=== PATIENT | male | born 1990 | race American Indian/Alaskan Native ===

== ENCOUNTER 2017-04-16 02:36 | Emergency (ER) | payer SELFPAY ==
[2017-04-16 03:05] LABS: Urine Drugs of Abuse Note Disclamer
[2017-04-16 03:10] LABS: Basophils % (Auto) 1.3 % (0.0-1.8); Eosinophils % (Auto) 3.4 % (0.0-4.3); Hemoglobin 15.2 gm/dl (11.8-15.2); Mean Corpuscular HGB Conc 32 % (32-34); Mean Corpuscular Hemoglobin 31 pg (28-32); Mean Corpuscular Volume 94 fl (84-94); Platelet Count 277 K/mm3 (140-440); Red Blood Count 4.99 M/mm3 (3.65-5.03); Red Cell Distribution Width 14.7 % (13.2-15.2)
[2017-04-16 03:14] LABS: Bilirubin,Urine NEG (Negative); Blood,Urine MOD (Negative); Ketones,Urine NEG (Negative); Leukocyte Esterase,Urine NEG (Negative); Mucus,Urine FEW /HPF; Nitrite,Urine NEG (Negative); Protein,Urine <15 mg/dL mg/dL (Negative); Urobilinogen,Urine < 2.0 mg/dL (<2.0)
[2017-04-16 03:33] LABS: Alanine Aminotransferase 12 units/L (7-56); Albumin 5.3 g/dL (3.9-5); Albumin/Globulin Ratio 1.7 %; Alkaline Phosphatase 76 units/L (35-129); Anion Gap 23 mmol/L; Blood Urea Nitrogen 15 mg/dL (9-20); Calcium 10.1 mg/dL (8.4-10.2); Carbon Dioxide 26 mmol/L (22-30); Chloride 98.6 mmol/L (98-107); Glucose 70 mg/dL (75-100); Potassium 4.8 mmol/L (3.6-5.0); Sodium 143 mmol/L (137-145); Total Protein 8.4 g/dL (6.3-8.2)
[2017-04-16] MEDS ORDERED: NACL 0.9% 500 ML 500 ML IV ONE (07:39)
--- NOTE | 2017-04-16 10:16 | Emergency Department Report ---
HPI - General Chief Complaint: Overdose Time Seen by Provider: 04/16/17 06:22 - HPI HPI: The patient's 27-year-old male presents for evaluation of altered mental status. The patient's states that the patient experienced syncope last night and constant and severe altered mental status this morning, prompting call to EMS. Per EMS the patient was found to have drowsiness and decreased responsiveness on scene. The patient reports tiredness secondary to excessive alcohol consumption last night. The patient denies illicit substance use. The patient also denies fever, head injury, headache, neck pain, neck stiffness, chest pain, dyspnea, vision or hearing changes, smell or taste changes, paresthesias, facial drooping, seizure-like activity, urine or bowel incontinence or retention, or other focal neurological deficit. ED Past Medical Hx - Past Medical History Previous Medical History?: No - Surgical History Past Surgical History?: No - Social History Smoking Status: Never Smoker ED Review of Systems ROS: Stated complaint: OVERDOSE Other details as noted in HPI Constitutional: denies: fever; reports tiredness ENT: denies: throat or neck pain Respiratory: denies: cough, shortness of breath Cardiovascular: denies: chest pain Endocrine: denies unexplained weight loss or gain Gastrointestinal: denies: abdominal pain, nausea Genitourinary: denies: dysuria Musculoskeletal: denies: leg swelling Skin: denies: rash Neurological: denies: headache Hematological/Lymphatic: denies: easy bleeding or easy bruising Psych: denies sadness or hopelessness Physical Exam - Physical Exam Vital Signs: Vital Signs 04/16/17 04/16/17 04/16/17 02:43 03:54 04:00 Temperature 98.2 F Pulse Rate 92 H 71 82 Respiratory 16 9 L 12 Rate Blood Pressure 120/90 O2 Sat by Pulse 100 98 97 Oximetry 04/16/17 04/16/17 04/16/17 04:05 04:10 04:20 Temperature Pulse Rate 86 80 Respiratory 12 14 8 L Rate Blood Pressure O2 Sat by Pulse 99 97 Oximetry 04/16/17 04/16/17 04/16/17 04:30 04:40 04:50 Temperature Pulse Rate 66 65 59 L Respiratory 9 L 7 L 7 L Rate Blood Pressure O2 Sat by Pulse 99 98 98 Oximetry 04/16/17 04/16/17 04/16/17 05:00 05:10 05:20 Temperature Pulse Rate 73 72 74 Respiratory 8 L 7 L 7 L Rate Blood Pressure O2 Sat by Pulse 97 97 97 Oximetry 04/16/17 04/16/17 04/16/17 05:30 05:40 05:50 Temperature Pulse Rate 77 73 76 Respiratory 7 L 6 L 8 L Rate Blood Pressure O2 Sat by Pulse 96 98 97 Oximetry Physical Exam: General: well-nourished, well-developed, no acute distress Head: Normocephalic, atraumatic Eyes: normal sclera, EOMI, PERRLA ENT: Mucous membranes are pale and dry Neck: No neck stiffness, no cervical adenopathy Respiratory: Breath sounds equal bilaterally, no wheezing, rales, or rhonchi Cardio: S1 and S2 present, no murmurs, rubs, gallops, capillary refill is delayed Abdomen: Normoactive bowel sounds, soft abdomen, no rigidity, no guarding or rebound tenderness Chest WALL/Back: No tenderness to palpation of the chest wall, no CVA tenderness with percussion Musc: No pitting edema Skin: No rash Neuro: Alert oriented 3, no facial drooping, normal speech, no sensation motor deficit in the arms or legs, reflexes are symmetrical DTR testing, no current Deficit with finger to nose testing, no obvious neuro deficits present at this time Psych: Normal affect ED Course Vital Signs 04/16/17 04/16/17 04/16/17 02:43 03:54 04:00 Temperature 98.2 F Pulse Rate 92 H 71 82 Respiratory 16 9 L 12 Rate Blood Pressure 120/90 O2 Sat by Pulse 100 98 97 Oximetry 04/16/17 04/16/17 04/16/17 04:05 04:10 04:20 Temperature Pulse Rate 86 80 Respiratory 12 14 8 L Rate Blood Pressure O2 Sat by Pulse 99 97 Oximetry 04/16/17 04/16/17 04/16/17 04:30 04:40 04:50 Temperature Pulse Rate 66 65 59 L Respiratory 9 L 7 L 7 L Rate Blood Pressure O2 Sat by Pulse 99 98 98 Oximetry 04/16/17 04/16/17 04/16/17 05:00 05:10 05:20 Temperature Pulse Rate 73 72 74 Respiratory 8 L 7 L 7 L Rate Blood Pressure O2 Sat by Pulse 97 97 97 Oximetry 04/16/17 04/16/17 04/16/17 05:30 05:40 05:50 Temperature Pulse Rate 77 73 76 Respiratory 7 L 6 L 8 L Rate Blood Pressure O2 Sat by Pulse 96 98 97 Oximetry ED Medical Decision Making - Lab Data Result diagrams: 04/16/17 02:37 04/16/17 02:37 - Medical Decision Making The patient was seen and examined by myself. The patient is placed on a cardiac specialist and continuous pulse ox. On initial evaluation, the patient was found to be in no distress. Evaluation orders were placed. The patient is given 500cc normal saline fluid bolus for treatment of dehydration. Lab results were grossly unremarkable. The patient eloped prior to discharge. Critical care attestation.: If time is entered above; I have spent that time in minutes in the direct care of this critically ill patient, excluding procedure time. ED Disposition Clinical Impression: Dehydration Accidental overdose Qualifiers: Encounter type: initial encounter Qualified Code(s): T50.901A - Poisoning by unspecified drugs, medicaments and biological substances, accidental ( unintentional), initial encounter Altered mental status Qualifiers: Altered mental status type: transient alteration of awareness Qualified Code(s) : R40.4 - Transient alteration of awareness Disposition: Z-07 ELOPED Is pt being admited?: No Does the pt Need Aspirin: No Condition: Stable Instructions: Dehydration (ED), Narcotic Abuse (ED), Polysubstance Abuse (ED) Referrals: PRIMARY CARE, [Primary Care Provider] - 3-5 Days Time of Disposition: 10:14
[2017-04-16 11:11] VITALS: BP 103/53
== END 2017-04-16 09:30 | disposition left against medical advice (07) ==
LOC: ED 02:36
DX: T50.901A Poisoning by unspecified drugs, medicaments and biological substances, accidental (unintentional), initial encounter (principal); E86.0 Dehydration; R40.4 Transient alteration of awareness; Y92.89 Other specified places as the place of occurrence of the external cause
CPT/HCPCS: 36415; 80053; 80307; 81001; 82140; 82962; 83735; 84443; 85025; 93005; 93010; 99284; G0480; 80320